=== PATIENT | female | born 1955 | race Caucasian/White ===

== ENCOUNTER 2020-06-16 06:32 | Inpatient (IN) ==
[~2020-06-16 06:32] MED LIST: TRANEXAMIC ACID 1,000 MG in NORMAL SALINE 100 ML IV PRN; ceFAZolin SODIUM 1 GM VIAL IV PRN
[2020-06-16] MEDS ORDERED: BUPIVACAINE HCL/EPINEPHRINE 50 ML VIAL ONE (06:38)
[2020-06-16] MEDS ORDERED: ONDANSETRON HCL/PF 2 MG/ML VIAL ONE (06:38)
[2020-06-16] MEDS ORDERED: PROPOFOL VIAL IV ONE (06:38)
[2020-06-16] MEDS ORDERED: MIDAZOLAM HCL/PF 5 MG/ML VIAL ONE (06:38)
[2020-06-16] MEDS ORDERED: ceFAZolin SODIUM 1 GM VIAL ONE (06:47)
[2020-06-16] MEDS ORDERED: ISOPROPYL ALCOHOL 480 APPL BTL MC ONE (06:47)
--- NOTE | 2020-06-16 07:18 | ANES ---
Anesthesia Pre Procedure Eval Vitals/Labs: Last Vital Signs Temp 36.2 C 06/16/20 06:35 Pulse 102 H 06/16/20 06:35 Resp 18 06/16/20 06:35 BP 127/78 06/16/20 06:35 Pulse Ox 97 06/16/20 06:35 HOME MEDICATIONS Aspirin [Aspir-Low] 81 mg PO DAILY 09/28/12 [Last Taken 06/09/20] Diltiazem HCl [Cardizem Cd] 240 mg PO DAILY 09/28/12 [Last Taken Unknown] Sertraline HCl [Zoloft] 100 mg PO DAILY 09/28/12 [Last Taken Unknown] Atorvastatin Calcium [Lipitor] 20 mg PO HS 09/02/19 [Last Taken Unknown] Benazepril HCl 20 mg PO DAILY 09/02/19 [Last Taken 06/16/20 06:00] Calcium Carbonate [Calcium] 600 mg PO BID 09/02/19 [Last Taken Unknown] Cholecalciferol (Vitamin D3) [Vitamin D3] 5,000 unit PO DAILY 09/02/19 [Last Taken Unknown] Hydrochlorothiazide [Hydrodiuril] 25 mg PO DAILY 09/02/19 [Last Taken 06/16/20 06:00] Bupropion HCl [Bupropion Xl] 300 mg PO DAILY 02/10/20 [Last Taken Unknown] Semaglutide [Ozempic] 0.5 mg SQ .QWEEKLY 02/10/20 [Last Taken Unknown] acetaminophen 325 mg tablet 650 mg PO Q6H PRN tab 02/12/20 [Last Taken Unknown] ibuprofen 200 mg tablet 800 mg PO BID PRN tab 05/08/20 [Last Taken Unknown] tramadol 50 mg tablet 100 mg PO TID PRN #60 tab MDD 6 05/22/20 [Last Taken Unknown] Allergies/Adverse Reactions: Allergies Allergy/AdvReac Type Severity Reaction Status Date / Time acetaminophen [From Vicodin] AdvReac Mild Vomiting Verified 06/16/20 06:44 hydrocodone bitartrate AdvReac Mild vomiting Verified 06/16/20 06:44 [From Vicodin] morphine AdvReac Mild vomiting Verified 06/16/20 06:44 - Planned Procedure Planned Procedure: RT Arthroplasty Total Shoulder Reverse Medication List Reviewed:: Yes Allergies Verified: Yes Medical History (Last Reviewed 06/16/20 @ 07:13 by Ander Nick CRNA) Anxiety Diabetes mellitus Type 2 Fracture, humerus closed, shaft Onset Date: 02/10/20 right High blood pressure High cholesterol Surgical History (Last Reviewed 06/16/20 @ 07:13 by Ander Nick CRNA) History of hip replacement right Hx of tonsillectomy Hx of tubal ligation Family History (Last Reviewed 06/16/20 @ 07:14 by Ander Nick CRNA) Mother Diabetes Hypertension Cancer breast Father Heart disease Hypertension - Family Anesthesia History Family History:: no untoward family reactions to anesthesia, no familial bleeding tendencies, no family history of clotting disorders, no family history of premature - Airway/Neck/Teeth Within Normal Limits:: No - High MP Score, some missing teeth Teeth Condition: missing Neck Exam: full range of motion Mallampatti Score: 4 Thyromental (T-M) distance: > 6 cm Mandibulo Hyoid distance: > 3 cm - Respiratory Respiratory History: sleep apnea, CPAP/BiPAP home use Respiratory Physical: decreased breath sounds, wheezing - light Smoking Status: Never smoker Sleep Apnea currently treated: Yes - but has not been using CPAP Sleep Apnea by current assessment: Yes Discussed Risks/Treatment of ALTAGRACIA: Yes - Cardiovascular Cardiac History: hypertension, hyperlipidemia Tolerate Activity: Fair Heart Sounds: S1 & S2, Regular - Gastrointestinal NPO since: 2400 - Anesthesia Assessment and Plan ASA Class: PS, III Anesthesia Type Plan: General LMA, Block - Interscalene for post op pain relief
[2020-06-16] MEDS: RINGER'S SOLUTION,LACTATED 1,000 ML IV PRN ×4 (07:20→13:57)
[2020-06-16] MEDS ORDERED: MAGNESIUM HYDROXIDE 30 ML UDC PO PRN (10:07)
[2020-06-16] MEDS ORDERED: ONDANSETRON HCL/PF 2 MG/ML VIAL IV PRN (10:07)
[2020-06-16] MEDS ORDERED: oxyCODONE HCL 5 MG TABLET PO PRN (10:07)
[2020-06-16] MEDS ORDERED: diphenhydrAMINE HCL 50 MG/ML VIAL IV PRN (10:07)
[2020-06-16] MEDS ORDERED: ZOLPIDEM TARTRATE 5 MG TABLET PO PRN (10:07)
[2020-06-16] MEDS ORDERED: MAG HYDROX/ALUMINUM HYD/SIMETH 30 ML UDC PO PRN (10:07)
[2020-06-16] MEDS ORDERED: HYDROmorphone HCL 1 MG/ML DISP.SYRIN IV PRN (10:07)
--- NOTE | 2020-06-16 10:14 | OR ---
Operative Report - Dictated Report Narrative: DATE OF PROCEDURE: 06/16/2020 PHYSICIAN: Rodriguez Stanton MD CIRCULATION ASSISTANT: Kilo Sewell PA-C (provided and essential set of skilled, educated hands that assisted with transfer, positioning, prepping, draping, manipulation, retraction, placement of implants, irrigation, closure wounds, and application of dressings all which cannot be performed by the available surgical crew) PREOPERATIVE DIAGNOSIS: Right rotator cuff deficient shoulder arthrosis. POSTOPERATIVE DIAGNOSIS: Right rotator cuff deficient shoulder arthrosis. OPERATIONS AND PROCEDURES: Right reverse total shoulder arthroplasty. ANESTHESIA: General plus regional. COMPLICATIONS: None. DRAINS: None. SPECIMENS: Bone. ESTIMATED BLOOD LOSS: 75 mL. RETAINED IMPLANTS: 1. DePuy Delta Xtend cementless metaglene. 2. Delta Xtend glenosphere, 38 mm standard. 3. Delta Xtend size 8 modular humeral [place]-coated cementless stem. 4. Size 1 right modular eccentric epiphysis [place]-coated cementless. 5. Delta Xtend standard polyethylene size 38 plus 6 mm. 6. Metaglene locking screws, 36 mm and 36 mm in length. 7. Nonlocking metaglene screws, 18 mm x 1 . INDICATIONS FOR PROCEDURE: Mrs. Carnes is a 64-year-old female with significant past history of rotator cuff tears and deficiency. She had treated these conservatively and had an irreparable rotator cuff with some progression of arthrosis of the shoulder and difficulty with activities of daily living in pain. She was seen in clinic and had failed conservative measures. She wished to proceed with surgical treatment. The risks, benefits, and alternatives were discussed in clinic, including the risk of , blood clots, bleeding, infection, nerve/tendon/blood vessel injury, malposition of components, failure of components, wear or limited range of motion, stiffness, and need for additional procedures, and she wished to proceed. Consent was obtained here in the clinic. DESCRIPTION OF PROCEDURE: After marking the correct extremity in the preoperative holding area, the patient was taken to the operating room. A timeout was performed. IV antibiotics consisting of Ancef were administered prior to procedure. The regional followed by general anesthetic was induced by the nurse corporate staff accountant at my request. She was then transitioned to beach chair position with all bony prominences well padded. The head in neutral, legs with SCDs and supported,and the nonoperative arm supported. The surgical arm was prescrubbed with alcohol then prepped and draped in the standard sterile fashion and the skin was covered with ioban. A deltopectoral incision was made and blunt dissection was carried down through the skin. The cephalic vein was identified, protected, and retracted. We then went through the deltopectoral interval, exposing the proximal humerus. It was noted that there was no rotator cuff, supraspinatus and infraspinatus tendon, or teres minor tendon. The subscapularis was intact as well as the biceps. A tag suture was placed in subscapularis tendon as well as the anterior capsule, and this was elevated off the anterior humerus passing along the bicipital groove and into the rotator cuff interval, exposing the proximal humerus. This was then freed off the proximal humerus. A biceps tenotomy was performed and the shoulder was dislocated. The humeral head was noted to show signs of arthrosis. Next, an entry drill was placed down the humerus centered on the longitudinal axis entering off just onto the articular surface on the humeral head. Next were serial reamers up to the size 8 were utilized, which gave good overall cortical contact. Next, a proximal humeral head cut was performed. We made the cut at approximately 10 degrees of retroversion. This appeared to resect an appropriate amount of humeral head. This was then pinned into place and an oscillating saw was utilized to cut this humeral head, protecting the surrounding soft tissues. We then placed a cap over the proximal humerus and turned our attention to the glenoid. The soft tissues were then elevated off the humeral neck as well as circumferentially around the glenoid. The glenoid was exposed. The remaining biceps tendon and labrum were resected. Using tractors, the glenoid was exposed and a guidewire was placed just posterior and inferior to the center of the glenoid. This was made so that it directed slightly superiorly but otherwise perpendicular to the glenoid on the axillary plane. Protecting the surrounding soft tissues, a reamer was utilized in order to remove the remaining cartilage. A hand brim ironer was utilized in order to resect the superior cartilage, and this resulted in a good overall appearance of the glenoid. The center drill lug hole was drilled and had good circumferential bone. The metaglene was then impacted into place and oriented for placement of screws along the mid plane in the superior and inferior quadrants of the glenoid as well as anterior to posterior screws. These were drilled and had appropriate overall length of screws on the superior and inferior metaglene screws. Good purchase was obtained with a 36 mm screw superiorly and 36 mm screw inferiorly. The anterior and posterior screws were drilled and 18 mm anterior nonlocking screw was placed. We then locked the superior and inferior screws into place. This gave good overall compression down to the glenoid with flat overall appearance and an appropriate alignment. We returned our attention to the proximal humerus. The proximal humeral reaming guide was placed for an eccentric reamer. This was utilized in order to prepare the proximal humerus. The trial stem was assembled on the back table and imp acted into place. After placing the trial stem, we then returned to the metaglene. The glenosphere was then secured to the metaglene, impacted, and tightened ensuring that this was seated completely. We then returned to the humeral component and placed the trials of polyethylene inserts and found that the 6mm gave good overall longitudinal traction with no gapping. The shoulder was able to reach 150 degrees of forward flexion and 150 degrees of abduction, external rotation was to 90 degrees and with fulcrum and armpit were unable to hinge the joint out of place, and there was no essentially no gapping of the polyethylene off the humeral head nor any signs of impingement on the glenoid neck. We felt that these were the appropriately placed and sized implants. We then dislocated the shoulder, removed the trial implants, thoroughly irrigated the humerus, impacted the final implants into place in the prior determined retroversion. The trial polyethylene was utilized again and was noted that the actual stem and the trial stem were equal in tension, and thus the final polyethylene was impacted into place. The shoulder was reduced, again noted to be stable, was then thoroughly irrigated. The subscapularis and biceps tendon were secured to the surrounding soft tissues using a #1 Ethibond suture. The deltopectoral interval was closed with #0 Vicryl. The deep tissues were then closed with #0 Vicryl, subcutaneous with 3-0 Monocryl, and the skin with jessy. Xeroform, 4 x 4, ABD, soft roll, and full arm Emigdio was applied. The patient was placed in a shoulder sling, awoken, and transferred to postanesthesia care in stable condition. All sponge, needle, and instrument counts were correct prior to closing the wounds. We will obtain postoperative films and be admitted to the floor for postoperative pain control, IV antibiotics, and starting of physical therapy. I anticipate a one to two night hospital stay.
--- NOTE | 2020-06-16 10:25 | ANES ---
Anesthesia Procedure Note Procedure Note: ANESTHESIA PROCEDURE NOTE Date of Procedure: 06/16/2020 Time of procedure: 7:45 AM. Performed by: ADRIANNA Mendez CRNA, MSN Electronic Plotting System Operator: Anabelle Jeffers RN. Preprocedure diagnosis: Total shoulder arthroplasty pain. Post procedure diagnosis: Same. Procedure: Right interscalene nerve block. Indications: Post right reverse total shoulder arthroplasty pain relief. Findings: See below. Details of the procedure: The patient was brought to OR #4 and placed in semi- Fowlers position. The patient was prepped with chlorhexidine and using ultrasound guidance the right interscalene segment of the brachial plexus was identified and lidocaine 1% was infiltrated to the skin of the intended inj ection site. Under ultrasound guidance the interscalene nerve bundles were approached with visualization of a 2inch stimulator needle visualized under ultrasound under out of plane approach until a shoulder/arm response was identified on nerve stimulator. Once the stimulator response was effective at less than 0.5 mV and greater than 0.3 mV the bracheal plexus nerves at this level were surrounded with 30 mL bupivacaine 0.5% with 1-200,000 epinephrine. Please see radiology/ultrasound report for details and retained images of the procedure. EBL: 0 Fluids: N/A. Specimen: N/A. Post procedure condition: The patient tolerated the procedure well. No complications were noted. Thank you for this consultation. Ander Nick CRNA, ARNP, MSN
--- NOTE | 2020-06-16 10:26 | ANES ---
Post Anesthesia Discharge - Transfer of Care Transfer of Care handoff given to nurse: Yes - Discharge from PACU Discharge from PACU when meets criteria: Yes - Awake and comfortable.
[2020-06-16] MEDS: KETOROLAC TROMETHAMINE 15 MG/ML VIAL IV SCH ×3 (11:09→21:39)
[2020-06-16] MEDS: ceFAZolin SODIUM 1 GM in DEXTROSE 5 % IN WATER 100 ML IV SCH ×4 (11:11→17:40)
--- NOTE | 2020-06-16 11:16 | ANES ---
Post Anesthesia Assessment - Vital Signs Vitals: Last Vital Signs Temp 36.5 C 06/16/20 10:55 Pulse 94 06/16/20 10:55 Resp 16 06/16/20 10:55 BP 128/62 06/16/20 10:55 Pulse Ox 99 06/16/20 10:55 Airway Patency: Normal - Mental Status Level Of Consciousness: Awake, Alert, Appropriate - Pain Level Pain Score: 0 - N/V Assessment Nausea/Vomiting Presence: None Dehydration:: No
[2020-06-16] MEDS ORDERED: RINGER'S SOLUTION,LACTATED 1,000 ML IV PRN (12:57)
[2020-06-16] MEDS ORDERED: ROSUVASTATIN CALCIUM 10 MG TABLET PO SCH (21:00)
[2020-06-16] MEDS ORDERED: SENNOSIDES/DOCUSATE SODIUM 1 TAB TABLET PO SCH (21:00)
[2020-06-16] MEDS: CALCIUM CARBONATE 500 MG TAB.CHEW PO SCH (21:37)
[2020-06-16] MEDS: ASPIRIN 325 MG TABLET.DR PO SCH (21:38)
[2020-06-17] MEDS: ceFAZolin SODIUM 1 GM in DEXTROSE 5 % IN WATER 100 ML IV SCH ×2 (00:14)
[2020-06-17] MEDS: oxyCODONE HCL/ACETAMINOPHEN 1 TAB TABLET PO PRN ×3 (00:18→14:35)
[2020-06-17] MEDS: KETOROLAC TROMETHAMINE 15 MG/ML VIAL IV SCH ×2 (04:28→10:19)
[2020-06-17] MEDS ORDERED: buPROPion HCL 150 MG TAB.SR.24H PO SCH (09:00)
[2020-06-17] MEDS ORDERED: ENALAPRIL MALEATE 20 MG TABLET PO SCH (09:00)
[2020-06-17] MEDS ORDERED: DILTIAZEM HCL 240 MG CAP.SR.24H PO SCH (09:00)
[2020-06-17] MEDS ORDERED: HYDROCHLOROTHIAZIDE 25 MG TABLET PO SCH (09:00)
[2020-06-17] MEDS ORDERED: SERTRALINE HCL 100 MG TABLET PO SCH (09:00)
[2020-06-17] MEDS ORDERED: CHOLECALCIFEROL 5,000 UNIT TABLET PO SCH (09:00)
[2020-06-17] MEDS: CALCIUM CARBONATE 500 MG TAB.CHEW PO SCH (09:12)
[2020-06-17] MEDS: ASPIRIN 325 MG TABLET.DR PO SCH (09:13)
--- NOTE | 2020-06-17 13:46 | DS ---
(1) Status post reverse arthroplasty of right shoulder Problem: Acute (2) Anxiety and depression Problem: Chronic (3) Diabetes mellitus type 2 in obese Problem: Chronic (4) Hyperglycemia Problem: Chronic (5) Hypertension Problem: Chronic (6) Sleep apnea Problem: Chronic (7) Hypercholesterolemia Problem: Chronic Date of Discharge:: 06/17/20 Hospital Course: Ms. Carnes was admitted to the floor after undergoing right reverse total shoulder arthroplasty. Tolerated this well. Was admitted to the floor postoperatively for 24 hours of IV antibiotics, pain control, medical comanagement, and occupational and physical therapy. OT and PT were consulted to assist with activities of daily living and mobility. Pain was initially controlled with IV regimen. This was transitioned to oral once tolerating a by mouth intake. Was resumed on home diet and medications. A Palacios catheter was inserted in the operating room which was discontinued by postoperative day 1. Aspirin, SCDs were utilized for DVT prophylaxis. Vital signs remained stable to the hospital course. Physical examination throughout the hospital course showed an extremity that had sensation that was intact to light touch, palpable pulses, a benign wound, motor intact to the hand wrist and shoulder. Once an oral pain regimen was tolerated and physical therapy goals were met, it was felt that they were stable for discharge to home. Instructions: Continue with non-weightbearing and range of motion as instructed. Keep the wound covered and dry. Keep the dressings intact. If there is any drainage from the wound keep the wound clean and dry and cover with dry gauze and tape. Change every 2-3 days as needed if there is any drainage. Cover wound while showering. Continue with physical therapy. Resume home diet. Report any fever over 101.5 Fahrenheit, uncontrolled pain, increased drainage, foul odor of drainage, new or increased calf pain or shortness of breath, or any other significant complaints. A 325mg aspirin twice daily will be continued. Continue with Tubigrip on the operative extremity until instructed otherwise. No driving until instructed otherwise. Follow up in approximately 2-3 weeks. Procedures Performed: see notes below List Procedures: Right reverse total shoulder arthroplasty Discharge Location: Home Disposition: Home self-care Condition: Good Discharge Activity: Non-Weight bearing, Other - Restrictions per protocol Discharge Diet: Consistent carbs Referrals: Ana Mcdonald APRN [Primary Care Provider] - Additional Patient Instructions (free text): Physical Therapy at [facility] in [place] on June 19 at 1:30pm. Please fax order and demographics to [phone]. Follow up [facility] Orthopedic office appointment on TuesdayJuly 01 at 9:00am. Prescriptions (Any new or edited meds): Aspirin [Aspirin Enteric Coated] 325 mg PO BID #60 tablet. Transmission Status: Pending to [facility] #[id number] oxyCODONE HCL/ACETAMINOPHEN [Percocet 5 MG/325 MG] 1 - 2 tab PO Q4H PRN #50 tab PRN Reason: Moderate Pain (Pain Scale 4-6) Transmission Status: Sent to [facility] #[id number] Sennosides/Docusate Sodium [Senokot-S] 2 tab PO HS #60 tab Transmission Status: Pending to [facility] #[id number] Complete Home Medications List: Complete Home Medication List: Diltiazem HCl [Cardizem Cd] 240 mg PO DAILY 09/28/12 Sertraline HCl [Zoloft] 100 mg PO DAILY 09/28/12 Atorvastatin Calcium [Lipitor] 20 mg PO HS 09/02/19 Benazepril HCl 20 mg PO DAILY 09/02/19 Calcium Carbonate [Calcium] 600 mg PO BID 09/02/19 Cholecalciferol (Vitamin D3) [Vitamin D3] 5,000 unit PO DAILY 09/02/19 Hydrochlorothiazide [Hydrodiuril] 25 mg PO DAILY 09/02/19 Bupropion HCl [Bupropion Xl] 300 mg PO DAILY 02/10/20 Semaglutide [Ozempic] 0.5 mg SQ .QWEEKLY 02/10/20 ibuprofen 200 mg tablet 800 mg PO BID PRN tab 05/08/20 Aspirin [Aspirin Enteric Coated] 325 mg PO BID #60 tablet. 06/17/20 Sennosides/Docusate Sodium [Senokot-S] 2 tab PO HS #60 tab 06/17/20 oxyCODONE HCL/ACETAMINOPHEN [Percocet 5 MG/325 MG] 1 - 2 tab PO Q4H PRN #50 tab 06/17/20 Amb Orders for Discharge: PT Evaluation and Treatment* Facility: [facility], Location: Rehabilitation Services Forms: Patient Portal Registration
[2020-06-17 14:18] VITALS: BP 118/66
[2020-06-23] MEDS ORDERED: (Semaglutide [Ozempic] 0.5 MG) SC SCH (10:15)
== END 2020-06-17 14:53 | disposition home or self-care (01) | DRG 483 ==
LOC: MS 06:32
PROVIDERS: ADMIT Orthopaedic Surgery; ATTEND Orthopaedic Surgery